=== PATIENT | female | born 1960 | race Caucasian/White ===

== ENCOUNTER 2019-02-20 19:47 | Emergency (ER) | payer OTHER ==
[2019-02-20] MEDS ORDERED: TDAP ADULT 0.5 ML INJ (BOOSTRIX) IM ONE (20:06)
--- NOTE | 2019-02-20 20:06 | EDPHY ---
General - History Smoking Status: Former smoker Time Seen by Provider: 02/20/19 20:03 Narrative: CLINICAL IMPRESSION: Dog bite, forearm puncture and laceration ASSESSMENT/PLAN: Patient is a 58-year-old female with a significant history of diabetes, hyperlipidemia and hypertension presents to the emergency department after sustaining a dog bite to her right forearm. Patient is nontoxic-appearing, she is in no acute distress. Physical examination reveals puncture and skin avulsion to the dorsal aspect of the right mid forearm, 2.5 cm gaping laceration to the volar aspect of the right mid forearm with associated contusion. There was no evidence of deep structure involvement, bony involvement, compartment syndrome or neurovascular compromise. I discussed increased risk of closing these wounds, however secondary to gaping nature 2 simple interrupted loose sutures were placed to close her forearm laceration. The areas were copiously irrigated and cleansed, dressed with antibiotic ointment and a nonstick dressing. The patient's tetanus status was updated in the emergency department, 1st dose of Augmentin was given. The patient is well established with their PCP at [place] and will call to schedule an appointment for a wound check within 48 hours; if they are unable to be seen by their primary care provider they will return to the emergency Department for a wound check. She will continue Augmentin for the next 7 days. On repeat examination and prior to discharge the patient is well appearing, no other injuries were identified and all questions and concerns have been answered. Strict return precautions were discussed-patient to return for any concerns for infection including increased redness, warmth, drainage, swelling, significant pain; she will return for any concerning symptom. The patient verbalizes understanding and is in agreement with this plan. DIFFERENTIAL DX: Differential diagnosis including but not limited to puncture, laceration, compartment syndrome, fracture, tendinous injury, contusion ED PROCEDURES: Laceration Repair Verbal consent obtained by patient. Risks discussed, including but not limited to infection, pain, retained foreign body, need for additional repair, poor cosmetic result, tendon damage, nerve damage, poor wound healing, vascular damage. Alternatives to repair discussed. [place] protocol used to establish correct patient, procedure, equipment, field technical support consultant, and site. Anesthesia obtained by local infiltration. Anesthetized with 1% lidocaine with epinephrine. Laceration location mid right forearm on the volar aspect, length 2.5 cm, depth 8 mm, Repair type simple. Patient was prepped and draped in usual sterile fashion. Hemostasis achieved with direct pressure. Wound explored through full range of motion and entire depth of wound probed and visualized with gloved finger. No suspicion for nerve damage, tendon damage, underlying fracture, vascular damage, foreign body, or contamination. Area was cleansed with [place]-Cl[place] and copiously irrigated with sterile saline as per protocol. No foreign body or material removed. Repair method 4.0 interrupted. Two of sutures placed. Well aligned, loosely approximated. wound was dressed with antibiotic ointment and dressing. Patient tolerated well with no immediate complications. Wound care: Clean and dry x 24 hours, gently clean with soap and water, cover with topical antibiotic ointment/bandage. Suture/Staple removal: 7-10 Days CHIEF COMPLAINT: Dog bite, right forearm puncture wound and laceration HPI: Patient is a 58-year-old female with a history of diabetes mellitus, hypertension, hyperlipidemia who presents to the emergency department after sustaining a dog bite from her own dog. Patient reports just prior to arrival she took her dog to a friend's house, he got scared and subsequently bit her arm. Patient complains of several punctures and laceration to the right forearm with some associated bruising. She was able to get the bleeding under control. She denies any decreased mobility or strength of the arm or hand. She is right-hand dominant, she is not up-to-date on her tetanus status. She denies any other injury or complaint. The patient's dog is up-to-date on his rabies vaccine. PAST MEDICAL HISTORY: Diabetes mellitus, hypertension, hyperlipidemia Family History: Not contributory Social History: Denies cigarette smoking or illicit drug use ROS: A full 10 point review of systems was negative except for those mentioned in HPI. PHYSICAL EXAM: General Appearance: Alert, well-appearing and in no acute distress. HENT: External ears are normal, nares are clear, mucosa is pink. Oropharynx is clear. Eyes: PERRLA, EOMI. Conjunctiva pink, no pallor or injection Neck: Supple, nontender, no lymphadenopathy, no midline pain, FROM. Respiratory: There are no retractions, lungs are clear to auscultation. Cardiac: Regular rate and rhythm, no murmurs or gallops. Gastrointestinal: Abdomen is soft, nontender, bowel sounds normal, no masses/ hernia, no rigidity, guarding or focal peritoneal findings. Skin: Warm, dry. See below. Upper Extremities: Left upper extremity is unremarkable- Intact distal pulses, Full range of motion intact, no tenderness, no ecchymosis or edema. Right upper extremity-right shoulder and elbow are nontender with full range of motion. Patient with a puncture into skin avulsions to the dorsal aspect of her mid right forearm. There is no evidence of gaping wound. There is a 2.5 cm gaping laceration to the mid right forearm volar aspect. There is some associated swelling and ecchymosis, the compartment is soft. Patient is able to pronate and supinate without difficulty. Wrist, hand and digits all nontender with full range of motion. The radial, ulnar and median nerves were all tested. Radial nerve: Patient is able to extend wrist and fingers of the local joints. Ulnar nerve: Patient is able to abduct all fingers. Median nerve patient is able to oppose thumb to pinky. Lower Extremities: Intact distal pulses, No edema, No tenderness, No cyanosis, full range of motion intact, No calf tenderness bilaterally. MEDICAL DECISION MAKING: Patient was seen independently. Secondary supervising physician at time of evaluation was Dr. Calhoun, he did not evaluate this patient. Diagnosis: Dog bite, forearm puncture and forearm laceration. Summary: See Assessment and Plan for summary of ED visit Clinical lab tests: Not applicable. Independent visualization of images, tracing, or specimens: Not applicable. Decision to obtain medical records or history from someone other than the patient: No Review / Summarize previous medical records: Yes Discussed patient with another provider: Yes, Dr. Calhoun Patient Progress: Stable, discharged. (Naz Gomes) Medical Decision Making: I did not see this patient while she was in the emergency department. However her care was discussed with the PA while the patient was in the department. I agree with treatment plan and management (Gerard Calhoun) - Objective Vital Signs: Initial Vital Signs Temperature (C) 36.7 C 02/20/19 19:55 Heart Rate 99 02/20/19 19:55 Respiratory Rate 16 02/20/19 19:55 Blood Pressure 171/107 H 02/20/19 19:55 O2 Sat (%) 95 02/20/19 19:55 O2 Delivery Mode Room Air Allergies/Adverse Reactions: No Known Allergies Allergy (Unverified 02/20/19 19:55) Home Medications: Medication Instructions Recorded Adderall 10 MG (*) 02/20/19 Amoxicillin/Clavulanate Pot 875 mg PO BID #14 tab 02/20/19 [Augmentin 875 MG TAB (*)] Atorvastatin Calcium 02/20/19 Hydrochlorothiazide 02/20/19 Insulin Aspart 02/20/19 Lisinopril 02/20/19 Metformin 1000 mg 02/20/19 Medications Given: Discontinued Medications Amoxicillin/Clavulanate Potassium (Augmentin 875mg) 875 mg PO EDNOW ONE PRN Reason: Protocol Stop: 02/20/19 20:11 Last Admin: 02/20/19 20:38 Dose: 875 mg Diphtheria/Tetanus/Acell Pertussis (Boostrix) 0.5 ml IM .ONCE ONE Stop: 02/20/19 20:07 Last Admin: 02/20/19 20:38 Dose: 0.5 ml Departure - Departure Disposition: Home, Routine, Self-Care Clinical Impression: Dog bite of arm, Puncture wound, Laceration of arm Condition: Good Instructions: Animal Bite (ED), Laceration (ED) Additional Instructions: DISCHARGE INSTRUCTIONS FROM YOUR DOCTOR Thank you for visiting our emergency department today. Please keep in mind that discharge from the emergency department does not mean that there is nothing wrong - it simply means that we have not identified an emergency condition that requires further evaluation or treatment in the hospital. Rest, push fluids, healthy diet, all to help support your immune system fight off infection. Clean your wounds clean and dressed. Clean at least four times daily or when soiled with gentle soap and water, apply a dressing and wear the splint for relative immobilization and protection. Elevate the affected arm as much as possible. Augmentin antibiotic as prescribed. Next dose in 12 hours. Take with food. Consider over the counter probiotics to help prevent antibiotic associated diarrhea. For pain control: You may take Tylenol, I recommend 500-1000 mg every 6-8 hours as needed. Take with food and a full glass of water. Stop taking if this is upsetting her stomach. Do not exceed 4000 mg in a 24 hr period. You may also take ibuprofen, recommend 400 mg every 6 hr. Take with food and a full glass of water. Stop taking if this upsets her stomach. Do not exceed 2400 mg in a 24 hr period. Follow-up in the next 1-2 days for a wound check, sooner for any concerns. As discussed, dog bite wounds are at high risk of infection, please monitor your wounds closely. Return for increased or unmanageable pain, decreased range of motion of your fingers or hand, coolness or discoloration of the fingers or hand, development of redness, swelling, warmth, drainage, heavy bleeding, red streaking, fever, chills, nausea, vomiting, dizziness, weakness, bloody diarrhea, rash, difficulty breathing or swallowing, or for any other new, worsening, or worrisome symptoms. People present with illnesses and injuries in different ways, and it is always possible that we have missed something. You may always return for re-evaluation if symptoms worsen or if they are not improving or if you develop new/different symptoms. Again, thank you for choosing our emergency department. We hope that you feel better. Referrals: NONE *PRIMARY CARE P,. [Primary Care Provider] - As per Instructions [facility] ,. [Edm Groups for Call Sched] - 1-2 days without fail Prescriptions: Amoxicillin/Clavulanate Pot [Augmentin 875 MG TAB (*)] 875 mg PO BID #14 tab
[2019-02-20] MEDS ORDERED: AMOXICILLIN/CLAVULANATE POT 875/125 MG TAB PO ONE (20:10)
[2019-02-20 21:19] VITALS: BP 137/88
== END 2019-02-20 21:17 | disposition home or self-care (01) ==
PROC: 0HQDXZZ Repair Right Lower Arm Skin, External Approach (ICD-10-PCS; principal; 2019-02-20)
DX: S51.831A Puncture wound without foreign body of right forearm, initial encounter (principal); S51.851A Open bite of right forearm, initial encounter; Z23 Encounter for immunization; I10 Essential (primary) hypertension; E11.9 Type 2 diabetes mellitus without complications; E78.5 Hyperlipidemia, unspecified; W54.0XXA Bitten by dog, initial encounter; Y92.009 Unspecified place in unspecified non-institutional (private) residence as the place of occurrence of the external cause